=== PATIENT | male | born 1965 | race Caucasian/White ===

== ENCOUNTER → 2016-10-15 06:39 | Day surgery (SDC) | payer OTHER ==
--- NOTE | 2016-10-13 21:08 | HP ---
ADMISSION HISTORY AND PHYSICAL: DATE OF ADMISSION: 10/15/16 AGE: 51 years, male. ADMITTING DIAGNOSIS: Elective sterilization. PLANNED PROCEDURE: Bilateral vasectomies with intravenous sedation. SURGEON: Dr. Portillo. ADMITTING HISTORY AND PHYSICAL: Frank Diaz is a 51-year-old gentleman who is and has 2 children and is interested in a vasectomy for permanent sterilization. He was seen in the office and was noted to be extremely uncomfortable during the scrotal examination in the office, and because of that , I recommended that he have a vasectomy done in the operating room with intravenous sedation. PAST MEDICAL HISTORY: Significant for environmental allergies. MEDICATIONS: On admission, Flonase p.r.n. ALLERGIES: No known drug allergies. PHYSICAL EXAMINATION GENERAL: A pleasant, healthy-appearing gentleman. VITAL SIGNS: Blood pressure is 112/78, pulse 86 per minute. LUNGS: Clear bilaterally. CARDIOVASCULAR EXAM: Regular rate and rhythm. S1, S2. ABDOMEN: Soft without masses. Testicles are descended bilaterally and are normal without masses. Right hydrocele is noted. IMPRESSION: A 51-year-old gentleman who is interested in permanent sterilization and is being brought in for vasectomy with intravenous sedation. I discussed the procedure in detail including possible risk of bleeding, infection, failure of vasectomy and chronic testicular pain, and all his questions have been answered. Planned procedure is bilateral vasectomy with intravenous sedation. CC: Dr. Phillip Moss; Dr. Portillo * [id number]/CPS #: [id number] MTDD
[~2016-10-15 06:39] MED LIST: Buffered Lidocaine 1% SYR 3ML* 3 ML/SYR SYRINGE INTRADERM ONE; Buffered Lidocaine 1% SYR 3ML* 3 ML/SYR SYRINGE ONE; Dexamethasone IV* 4 MG/ML 1 ML (4 MG) IV SLOW PU ONE; Dexamethasone IV* 4 MG/ML 1 ML (4 MG) ONE; Famotidine IV* 10 MG/ML 2 ML (20 mg) IV ONE; Famotidine IV* 10 MG/ML 2 ML (20 mg) ONE; HYDROcodone/ACETAMIN 5-325 MG* 1 TAB ONE; HYDROcodone/ACETAMIN 5-325 MG* 1 TAB PO PRN; Ketorolac INJ* 30 MG/ML 1 ML VIAL IV PRN; Lidocaine 1% INJ* 10 MG/ML 30 ML SDV ONE; Lidocaine 2% MPF* 2 ML VIAL ONE; Midazolam* 1 MG/ML 5 ML VIAL (5 MG) ONE; Ondansetron INJ* 2 MG/ML VIAL IV PRN; PROCHLORPERAZINE INJ 5 MG/ML 2 ML VIAL IV PRN; Propofol* 10 MG/ML 20 ML BTL IV PUSH ONE; cefTRIAXone VIAL(*) 1,000 MG in NS 0.9% 50 ML* 50 ML IVPB ONE; fentaNYL* 50 MCG/ML 2 ML VIAL (100 MCG VIAL) IV PRN; fentaNYL* 50 MCG/ML 2 ML VIAL (100 MCG VIAL) ONE
[2016-10-15 09:48] VITALS: BP 117/89
--- NOTE | 2016-10-15 21:33 | OP ---
DATE OF OPERATION: 10/15/16 [facility] DATE OF : 65 SURGEON: Dr. Portillo. ANESTHESIOLOGIST: Dr. Villela. ANESTHESIA: Local plus intravenous sedation. PRE-OP DIAGNOSIS: Elective sterilization. POST-OP DIAGNOSIS: Elective sterilization. OPERATIVE PROCEDURE: Bilateral vasectomy with intravenous sedation. COMPLICATIONS: None. POSTOPERATIVE CONDITION: Stable. SPECIMENS: Right and left vas deferens. INDICATIONS: Frank Diaz is a 51-year-old gentleman who desires permanent sterilization and is being brought in for a vasectomy under intravenous sedation. I have discussed the procedure including possible risks of bleeding, infection, failure of vasectomy, and chronic testicular pain, and he understands and wishes to proceed as planned. DESCRIPTION OF PROCEDURE: After administration of intravenous sedation, external genitalia were prepped and draped in the usual sterile fashion. 1% Xylocaine local anesthetic was infiltrated on the left side. The vas deferens was identified and was pulled up through the incision. A small segment of the vas was excised and the divided ends were controlled using hemoclips and electrocautery. They were then allowed to drop back into their normal anatomic position. The skin was approximated using interrupted sutures of 4-0 chromic. An identical procedure was carried out on the right side. Once again, a small segment of the vas was excised and once again, hemoclips were used to occlude the divided ends. The patient tolerated the procedure satisfactorily and was transferred back to the recovery area in stable condition. [id number]/CPS #: [id number] MTDD
== END | disposition home or self-care (01) ==
LOC: OR 06:39
PROVIDERS: ATTEND Urology
DX: Z30.2 Encounter for sterilization (principal)
CPT/HCPCS: 88302; J0696; J1100; J2250; J2704; J3010

== ENCOUNTER 2018-03-14 07:59 | Emergency (ER) | payer OTHER ==
[2018-03-14 08:12] VITALS: BP 136/97
[2018-03-14] MEDS ORDERED: Silver Nitrate/Potassium Nitr* 1 EA STICK ONE ×2 (09:30→09:47)
--- NOTE | 2018-03-14 10:15 | UC ---
Skin Complaint HPI - HPI Summary HPI Summary: Patient has multiple skin tags. Scratched one on his neck last night and it is continuing to bleed. He takes a baby aspirin on most days of the week but no other blood thinners. - History of Current Complaint Chief Complaint: UCGeneralIllness Time Seen by Provider: 03/14/18 09:19 Stated Complaint: SKIN ISSUE Hx Obtained From: Patient Onset/Duration: Sudden Onset, Lasting Hours, Still Present Timing: Constant Onset Severity: Moderate Current Severity: Moderate Pain Intensity: 0 Pain Scale Used: 0-10 Numeric Alleviating Factor(s): Nothing - Allergy/Home Medications Allergies/Adverse Reactions: Allergies Allergy/AdvReac Type Severity Reaction Status Date / Time ENVIRONMENTAL/HAYFEVER Allergy Congestion Uncoded 03/14/18 08:12 Review of Systems Constitutional: Negative Skin: Other - irritated skin tags Respiratory: Negative Cardiovascular: Negative Gastrointestinal: Negative All Other Systems Reviewed And Are Negative: Yes PMH/Surg Hx/FS Hx/Imm Hx Previously Healthy: Yes - Surgical History Surgical History: Yes Surgery Procedure, Year, and Place: 1985 WISDOM TEETH EXTRACTION, OFFICE. [place] [facility] [place]OS[place] WITH IV SEDATION, [facility]. wart removal - Family History Known Family History: Positive: Hypertension - Social History Alcohol Use: Daily Alcohol Amount: 10/14 DRINKS PER WEEK Substance Use Type: None Smoking Status (MU): Never Smoked Tobacco - Immunization History Most Recent Tetanus Shot: UTD Physical Exam Triage Information Reviewed: Yes Appearance: Well-Appearing, No Pain Distress, Well-Nourished Vital Signs: Initial Vital Signs Temp 97.8 F 03/14/18 08:06 Pulse 62 03/14/18 08:06 Resp 18 03/14/18 08:06 BP 136/97 03/14/18 08:06 Pulse Ox 100 03/14/18 08:06 Vital Signs Reviewed: Yes Eyes: Positive: Conjunctiva Clear ENT: Positive: Hearing grossly normal Neck: Positive: Supple Respiratory: Positive: No respiratory distress, No accessory muscle use Cardiovascular: Positive: Pulses Normal Abdomen Description: Positive: Soft Musculoskeletal: Positive: No Edema Neurological: Positive: Alert Psychological: Positive: Age Appropriate Behavior Skin: Positive: Other - PEDUNCULATED SKIN TAGS SCATTERED OVER TORSO. 1 ON ANTERIOR NECK BLEEDING AND IRRITATED. IRRITATED SKIN TAG LEFT AXILLA X1 AND UNDER LEFT ARM X 1 Course/Dx - Course Course Of Treatment: 3 IRRITATED SKIN TAGS REMOVED USING SCISSORS. HEMOSTASIS ACHIEVED USING SILVER NITRATE AND CAUTERY. - Diagnoses Provider Diagnoses: IRRITATED SKIN TAG REMOVAL X 3 Discharge - Sign-Out/Discharge Documenting (check all that apply): Discharge/Admit/Transfer - Discharge Plan Condition: Stable Disposition: HOME Referrals: Phillip Moss MD [Primary Care Provider] - If Needed Ann Burton MD [Medical Doctor] - Additional Instructions: 3 SKIN TAGS REMOVED TODAY. SEEK FOLLOW-UP IF YOU DEVELOP SPREADING REDNESS OF THE SKIN, PURULENT DRAINAGE, FEVER, INCREASED PAIN OR ANY OTHER CONCERNING SYMPTOMS. DERMATOLOGY IN [place] DR. ANN BURTON [facility], [facility] [address]; [address] [place] [address] Dr. Brunilda Concepcionister Address: [address] [place] [address] [address] [place] [address] DR. ONEAL BARBER [facility] [address] [place] [address] [facility]. Britta [place] [facility]MAT[facility]Y IN [place] DR. JUDD ROSE [phone] - Billing Disposition and Condition Condition: STABLE Disposition: Home
== END 2018-03-14 10:10 | disposition home or self-care (01) ==
LOC: UCEAST 07:59
DX: L91.8 Other hypertrophic disorders of the skin (principal)
CPT/HCPCS: 11200; 99212; A9270-GY; G0463